=== PATIENT | male | born 1990 | race Caucasian/White ===

== ENCOUNTER 2018-06-11 10:33 | Emergency (ER) | payer BC, OTHER ==
[~2018-06-11] VITALS: Ht 185.4 cm; Wt 113.4 kg
[2018-06-11 10:48] VITALS: BP 128/95
[2018-06-11] MEDS ORDERED: METHOCARBAMOL 500 MG TAB PO ONE (13:15)
[2018-06-11] MEDS ORDERED: KETOROLAC TROMETH 60MG/2ML VIAL IM ONE (13:15)
== END 2018-06-11 13:17 | disposition left against medical advice (07) ==
LOC: ER 10:37
DX: M54.9 Dorsalgia, unspecified (principal); Z53.21 Procedure and treatment not carried out due to patient leaving prior to being seen by health care provider

== ENCOUNTER 2018-07-07 18:02 | Inpatient (IN) | payer BC ==
[~2018-07-07] VITALS: Ht 185.4 cm; Wt 111.1 kg
[2018-07-07] MEDS ORDERED: SODIUM CHLORIDE 0.9% 1,000 ML IV ONE ×2 (18:35)
[2018-07-07] MEDS ORDERED: NALOXONE HCL 0.4 MG/ML VIAL IV ONE (18:45)
[2018-07-07 19:08] LABS: Basophils # (auto) 0.1 uL; Basophils % (auto) 0.4 % (0.0-2.0); Eosinophils # (auto) 0.1 uL; Eosinophils % (auto) 0.4 % (0.0-7.0); Hematocrit 44.1 % (41.0-53.0); Lymphocytes # (auto) 1.8 uL; Lymphocytes % (auto) 12.4 % (10.0-50.0); Mean Corpuscular Hgb Conc. 34.1 g/dL (32.0-36.0); Mean Corpuscular Volume 87.9 fL (80.0-100.0); Monocytes # (auto) 0.9 uL; Neutrophils % (auto) 80.8 % (37.0-80.0); Nucleated Red Blood Cells % 0.1 %; Platelet Count (auto) 233 10^3/uL (140-450); Red Blood Cells 5.01 10^6/uL (4.5-5.90); Red Cell Distribution Width 13.5 % (11.8-14.3); White Blood Cell 14.8 10^3/uL (4.4-10.8)
[2018-07-07 19:15] LABS: Albumin 4.1 g/dL (3.4-5.0); Anion Gap 10 (5-15); BUN/Creatinine Ratio 7.9; Blood Alcohol < 3.0 mg/dL (0-5); Blood Urea Nitrogen 10 mg/dL (7-18); Carbon Dioxide 27 mmol/L (21-32); Chloride 105 mmol/L (98-107); GFR African American 89 mL/min; GFR Non-African American 74 mL/min; Glucose 97 mg/dL (74-106); Potassium 3.8 mmol/L (3.5-5.1); Sodium 142 mmol/L (136-145)
[2018-07-07 19:22] LABS: Alanine Aminotransferase 18 U/L (16-61); Alkaline Phosphatase 66 U/L (45-117); Aspartate Aminotransferase 13 U/L (15-37); Bilirubin, Total 0.2 mg/dL (0.2-1.0); Total Protein 8.2 g/dL (6.4-8.2)
[2018-07-07 22:13] LABS: Urine Bacteria FEW /hpf (None Seen); Urine Blood Negative /uL (Negative); Urine Mucus FEW (None Seen); Urine Specific Gravity 1.019 (1.001-1.035); Urine WBC 2 /hpf (0 - 3)
[2018-07-07 22:48] LABS: Alcohol, Urine < 3.0 mg/dL (0-5); Amphetamine Screen, Urine NEGATIVE (NEGATIVE); Barbiturate Scree,Urine NEGATIVE (NEGATIVE); Benzodiazephine Screen, Urine POSITIVE (NEGATIVE); Cannabinoid Screen, Urine NEGATIVE (NEGATIVE); Cocaine Screen, Urine NEGATIVE (NEGATIVE); Opiate Scree,Urine POSITIVE (NEGATIVE); Phencyclidine Screen, Urine NEGATIVE (NEGATIVE)
[2018-07-08] MEDS ORDERED: SODIUM CHLORIDE 0.9% 1,000 ML IV ONE (04:30)
[2018-07-08] MEDS ORDERED: LORazepam 2MG/ML-1ML VIAL IV PRN (04:30)
[2018-07-08] MEDS ORDERED: LORazepam 2MG/ML-1ML VIAL IV ONE (04:30)
[2018-07-08] MEDS ORDERED: ONDANSETRON HCL 4 MG/2 ML VIAL IV PRN (04:30)
[2018-07-08] MEDS ORDERED: LEVETIRACETAM INJ 500 MG in D5W 5% 100 ML IV ONE ×2 (04:45→09:45)
[2018-07-08] MEDS ORDERED: FLUMAZENIL 0.1 MG/ML INJ 10ML MDV IV ONE (04:45)
[2018-07-08] MEDS ORDERED: LEVETIRACETAM 500 MG/5ML INJ IV ONE (05:40)
[2018-07-08] MEDS ORDERED: LEVETIRACETAM INJ 1,000 MG in D5W 5% 100 ML IV ONE (07:45)
[2018-07-08 07:53] LABS: Basophils # (auto) 0 uL; Basophils % (auto) 0.2 % (0.0-2.0); Eosinophils # (auto) 0 uL; Eosinophils % (auto) 0.1 % (0.0-7.0); Hematocrit 42.9 % (41.0-53.0); Hemoglobin 14.1 g/dL (13.5-17.5); Lymphocytes # (auto) 1.1 uL; Lymphocytes % (auto) 7.4 % (10.0-50.0); Mean Corpuscular Hemoglobin 29.4 pg (28.0-32.0); Mean Corpuscular Volume 89.2 fL (80.0-100.0); Monocytes # (auto) 1.1 uL; Monocytes % (auto) 7.4 % (0.0-12.0); Neutrophils # (auto) 12.1 uL; Neutrophils % (auto) 84.9 % (37.0-80.0); Platelet Count (auto) 211 10^3/uL (140-450); Red Cell Distribution Width 13.3 % (11.8-14.3); White Blood Cell 14.3 10^3/uL (4.4-10.8)
[2018-07-08 08:01] LABS: BUN/Creatinine Ratio 8.9; Calcium 8.5 mg/dL (8.5-10.1)
[2018-07-08 08:15] LABS: Salicylate < 1.7 mg/dL (2.8-20.0)
[2018-07-08 08:17] LABS: Acetaminophen < 2.0 ug/mL (10-30)
[2018-07-08] MEDS ORDERED: cefTRIAXone 1GM/50ML D5W 50 ML IV SCH (09:00)
[2018-07-08] MEDS: cefTRIAXone 1GM/50ML D5W 50 ML IV SCH (09:23)
[2018-07-08] MEDS ORDERED: PROMETHAZINE HCL 25 MG/ML 1ML ONE (17:33)
[2018-07-08] MEDS: PROMETHAZINE HCL 25 MG/ML 1ML IV PRN (17:40)
[2018-07-08] MEDS ORDERED: LEVETIRACETAM INJ 500 MG in D5W 5% 100 ML IV SCH (20:00)
[2018-07-08] MEDS: LEVETIRACETAM INJ 1,000 MG in D5W 5% 100 ML IV SCH (22:27)
[2018-07-09 01:19] VITALS: BP 132/62
[2018-07-09] MEDS: PROMETHAZINE HCL 25 MG/ML 1ML IV PRN ×4 (06:01→20:21)
[2018-07-09] MEDS: ACETAMINOPHEN 500 MG TAB PO PRN ×3 (06:24→21:33)
[2018-07-09 08:00] VITALS: BP 127/95
[2018-07-09] MEDS: cefTRIAXone 1GM/50ML D5W 50 ML IV SCH (10:47)
[2018-07-09] MEDS: LEVETIRACETAM INJ 1,000 MG in D5W 5% 100 ML IV SCH ×2 (10:48→21:32)
[2018-07-09 12:15] VITALS: BP 142/77
[2018-07-09 16:07] VITALS: BP 142/74
[2018-07-09 21:26] VITALS: BP 136/79
[2018-07-10] MEDS: ACETAMINOPHEN 500 MG TAB PO PRN (04:44)
[2018-07-10 05:00] VITALS: BP 125/88
[2018-07-10 09:00] VITALS: BP 146/93
[2018-07-10] MEDS ORDERED: HYDROcodone-ACET 5/325MG TAB PO PRN (09:00)
[2018-07-10] MEDS: cefTRIAXone 1GM/50ML D5W 50 ML IV SCH (09:21)
[2018-07-10] MEDS: LEVETIRACETAM INJ 1,000 MG in D5W 5% 100 ML IV SCH (10:00)
[2018-07-10 13:00] VITALS: BP 114/76
[2018-07-10 13:53] LABS: Basophils # (auto) 0.1 uL; Basophils % (auto) 0.9 % (0.0-2.0); Eosinophils # (auto) 0.1 uL; Eosinophils % (auto) 0.7 % (0.0-7.0); Hematocrit 46.6 % (41.0-53.0); Hemoglobin 15.5 g/dL (13.5-17.5); Lymphocytes # (auto) 1.7 uL; Lymphocytes % (auto) 22.1 % (10.0-50.0); Mean Corpuscular Hemoglobin 29.3 pg (28.0-32.0); Mean Corpuscular Hgb Conc. 33.3 g/dL (32.0-36.0); Mean Corpuscular Volume 88.2 fL (80.0-100.0); Monocytes # (auto) 0.7 uL; Monocytes % (auto) 8.9 % (0.0-12.0); Neutrophils # (auto) 5.3 uL; Neutrophils % (auto) 67.4 % (37.0-80.0); Nucleated Red Blood Cells % 0.1 %; Platelet Count (auto) 240 10^3/uL (140-450); Red Blood Cells 5.29 10^6/uL (4.5-5.90); Red Cell Distribution Width 13.4 % (11.8-14.3); White Blood Cell 7.9 10^3/uL (4.4-10.8)
== END 2018-07-10 15:57 | disposition home or self-care (01) | DRG 917 ==
LOC: ER 18:02 → EDBD 18:02 → TELE 18:03 → DOU IN ICU 07-08 23:35 → CENTRAL 07-09 18:56
PROVIDERS: ADMIT Nurse Practitioner Family; ATTEND Family Medicine
DX: T50.901A Poisoning by unspecified drugs, medicaments and biological substances, accidental (unintentional), initial encounter (principal); G92 Toxic encephalopathy; G40.89 Other seizures; N39.0 Urinary tract infection, site not specified; F17.200 Nicotine dependence, unspecified, uncomplicated; F20.9 Schizophrenia, unspecified; R20.2 Paresthesia of skin; F41.9 Anxiety disorder, unspecified; F41.0 Panic disorder [episodic paroxysmal anxiety]; F31.9 Bipolar disorder, unspecified; E66.9 Obesity, unspecified; Z68.32 Body mass index [BMI] 32.0-32.9, adult; Z81.1 Family history of alcohol abuse and dependence; Z81.8 Family history of other mental and behavioral disorders; Z80.6 Family history of leukemia; Y92.89 Other specified places as the place of occurrence of the external cause
CPT/HCPCS: 36415; 36600; 70450; 70551; 71045; 80048; 80053; 80164; 80307; 80320; 80329; 81001; 82805; 82962; 84484; 85025; 87081; 87086; 93005; 96361; 96365; 96367; 96375; G0378; J0696; J2405; J7060